=== PATIENT | male | born 1955 | race Caucasian/White ===

== ENCOUNTER 2016-08-24 22:56 | Emergency (ER) | payer SELFPAY ==
[~2016-08-24] VITALS: Ht 175.3 cm; Wt 117.9 kg
[2016-08-25] MEDS ORDERED: Morphine Sulfate 2mg/ml Inj IVP PRN
[2016-08-25] MEDS ORDERED: Enalaprilat 2.5mg/2ml Inj IV PRN
[2016-08-25] MEDS ORDERED: Diltiazem 25mg/5ml IV ONE
[2016-08-25] MEDS ORDERED: Ketorolac 30mg Inj IV PRN
[2016-08-25] MEDS ORDERED: DuoNeb 0.5-3(2.5)mg/3ml neb HHN PRN
[2016-08-25] MEDS ORDERED: Nitroglycerin Subl 0.4mg tab (Bottle Of 25) SL PRN
[2016-08-25] MEDS ORDERED: Miralax 17gm pkt ORAL PRN
[2016-08-25 00:11] LABS: MEAN CORPUSCULAR HEMOGLOBIN 41.9 PG (27.0-31.0); MEAN CORPUSCULAR HGB CONC 33.3 G/DL (32.0-36.0); MEAN CORPUSCULAR VOLUME 126 FL (80-99); MEAN PLATELET VOLUME 8.5 FL (6.5-10.1); PLATELET COUNT 160 K/UL (150-450); RED BLOOD COUNT 2.55 M/UL (4.70-6.10); WHITE BLOOD COUNT 8.8 K/UL (4.8-10.8)
[2016-08-25 00:13] LABS: APPEARANCE,URINE CLEAR; KETONES,URINE 1+ (NEGATIVE); LEUKOCYTE ESTERASE ,URINE NEGATIVE (NEGATIVE); NITRITE,URINE NEGATIVE (NEGATIVE); PH,URINE 5 (4.5-8.0); PROTEIN,URINE NEGATIVE (NEGATIVE); UROBILINOGEN,URINE 1 MG/DL (0.0-1.0)
[2016-08-25 00:23] LABS: INR 1.3 (0.9-1.1)
[2016-08-25] MEDS ORDERED: PREDNISONE20 MG ORAL (00:25)
[2016-08-25] MEDS ORDERED: CARDIZEM CD180 MG ORAL (00:25)
[2016-08-25] MEDS ORDERED: METOPROLOL TART25 MG ORAL (00:25)
[2016-08-25 00:28] LABS: TROPONIN I < 0.30 ng/mL (<=0.30)
[2016-08-25 00:31] LABS: ALANINE AMINOTRANSFERASE 276 U/L (3-41); ANION GAP 17 (5-15); ASPARTATE AMINO TRANSFERASE 96 U/L (5-40); CALCIUM 8.5 mg/dL (8.6-10.2); CARBON DIOXIDE 23 mEQ/L (20-30); CHLORIDE 96 mEQ/L (98-107); CREATININE 0.7 mg/dL (0.7-1.2); GLOMERULAR FILTRATION RATE > 60 mL/min (>60); HEMOLYSIS 9; POTASSIUM 4.8 mEQ/L (3.4-4.9); SODIUM 136 mEQ/L (135-145); TOTAL PROTEIN 5.5 g/dL (6.6-8.7)
[2016-08-25 00:42] LABS: CKMB 4.2 ng/mL (< 6.7)
[2016-08-25 00:52] LABS: BILIRUBIN,DIRECT 0.5 mg/dL (0.1-0.3)
--- NOTE | 2016-08-25 01:37 | Emergency Room Report ---
History of Present Illness General Chief Complaint: Dyspnea/Respdistress Source: Patient, EMS Present Illness HPI This is a 61-year-old male with a history of A. fib, DVT/PE. He was on Elaquis but have complication of low hemoglobin. For this he is taking prednisone. He is supposed to be on Coumadin but hasn't take it for a few days. He presents with chief complaint of feeling weak while he was walking and nearby business. Said that he felt like he has no energy. Denies any fever chills denies any nausea vomiting. No chest pain. Allergies: Coded Allergies: ERYTHROMYCIN BASE (Verified Allergy, Unknown, 08/24/16) Patient History Past Medical History: see triage record, old chart reviewed Past Surgical History: other Pertinent Family History: none Social History: Denies: smoking Immunizations: other Reviewed Nursing Documentation: PMH: Agreed, PSxH: Agreed Nursing Documentation-PMH Hx Cardiac Problems: Yes - A FIB,ANEMIA,PE Hx Diabetes: Yes Review of Systems Constitutional: Reports: malaise, weakness Eye: Denies: blurred vision, eye pain ENT: Denies: ear pain, nose congestion, throat swelling Respiratory: Denies: cough, shortness of breath Cardiovascular: Denies: chest pain, palpitations Gastrointestinal: Denies: abdominal pain, diarrhea, nausea, vomiting Musculoskeletal: Denies: back pain, joint pain Skin: Denies: rash Neurological: Denies: headache, numbness Endocrine: Denies: increased thirst, increased urine Hematologic/Lymphatic: Denies: easy bruising All Other Systems: negative except mentioned in HPI Physical Exam Vital Signs Date Time Temp Pulse Resp B/P Pulse Ox O2 Delivery O2 Flow Rate FiO2 08/24/16 23:03 98.1 112 16 101/69 93 Room Air vitals with tachycardia and hypoxia Sp02 EP Interpretation: abnormal General Appearance: mild distress, obese Head: normocephalic, atraumatic Eyes: bilateral eye EOMI, bilateral eye PERRL ENT: hearing grossly normal, normal pharynx Neck: full range of motion, supple, no meningismus Respiratory: chest non-tender, normal breath sounds, rales - In basis Cardiovascular #1: no murmur, tachycardia, irregularly irregular Gastrointestinal: normal bowel sounds, non tender, no mass, no organomegaly, no bruit, non-distended Musculoskeletal: back normal, normal range of motion, swelling - one plus edema Neurologic: alert, oriented x3 Psychiatric: mood/affect normal Skin: warm/dry Procedures Critical Care Time Critical Care Time Critical care is mandated in this patient who presented with weakness and in rapid A. fib. Patient require my urgent intervention to attenuate the risks of metabolic collapse which may lead to cardiovascular collapse and . Critical care time is 35 minutes excluding any reportable procedure. Critical care time included evaluation, multiple reevaluation, looking at old charts, interpreting laboratory and diagnostic data, discussing case with patient and family and consultants, and charting. Medical Decision Making Diagnostic Impression: Primary Impression: Rapid atrial fibrillation Additional Impressions: CHF exacerbation Qualified Codes: I50.9 - Heart failure, unspecified Anemia Qualified Codes: D64.9 - Anemia, unspecified Hyperglycemia due to type 2 diabetes mellitus Qualified Codes: E11.65 - Type 2 diabetes mellitus with hyperglycemia; Z79.4 - custodial (current) use of insulin ER Course Patient presents with weakness and has rapid A. fib. Also CHF. He improved greatly 1 rate was controlled. He said he felt better now. He did not want to be admitted here because all of his admission has been in [place]. His came here and said that they would leave AGAINST MEDICAL ADVICE. She will drive him to [place] for admission. He is competent to make that decision. I print out laboratory data for the patient. Laboratory Tests Test 08/24/16 23:50 White Blood Count 8.8 K/UL (4.8-10.8) Red Blood Count 2.55 M/UL (4.70-6.10) L Hemoglobin 10.7 G/DL (14.2-18.0) L Hematocrit 32.0 % (42.0-52.0) L Mean Corpuscular Volume 126 FL (80-99) H Mean Corpuscular Hemoglobin 41.9 PG (27.0-31.0) H Mean Corpuscular Hemoglobin Concent 33.3 G/DL (32.0-36.0) Red Cell Distribution Width 18.0 % (11.6-14.8) H Platelet Count 160 K/UL (150-450) Mean Platelet Volume 8.5 FL (6.5-10.1) Neutrophils (%) (Auto) % (45.0-75.0) Lymphocytes (%) (Auto) % (20.0-45.0) Monocytes (%) (Auto) % (1.0-10.0) Eosinophils (%) (Auto) % (0.0-3.0) Basophils (%) (Auto) % (0.0-2.0) Prothrombin Time 14.0 SEC (9.30-11.50) H Prothromb Time International Ratio 1.3 (0.9-1.1) H Activated Partial Thromboplast Time 26 SEC (23-33) Urine Color Yellow Urine Appearance Clear Urine pH 5 (4.5-8.0) Urine Specific [place]lar 1.020 (1.005-1.035) Urine Protein Negative (NEGATIVE) Urine Glucose (UA) 4+ (NEGATIVE) H Urine Ketones 1+ (NEGATIVE) H Urine Occult Blood Negative (NEGATIVE) Urine Nitrite Negative (NEGATIVE) Urine Bilirubin Negative (NEGATIVE) Urine Urobilinogen 1 MG/DL (0.0-1.0) H Urine Leukocyte Esterase Negative (NEGATIVE) Sodium Level 136 mEQ/L (135-145) Potassium Level 4.8 mEQ/L (3.4-4.9) Chloride Level 96 mEQ/L (98-107) L Carbon Dioxide Level 23 mEQ/L (20-30) Anion Gap 17 (5-15) H Blood Urea Nitrogen 26 mg/dL (7-23) H Creatinine 0.7 mg/dL (0.7-1.2) Estimat Glomerular Filtration Rate > 60 mL/min (>60) Glucose Level 397 mg/dL (74-106) H Calcium Level 8.5 mg/dL (8.6-10.2) L Total Bilirubin 1.3 mg/dL (0.0-1.2) H Direct Bilirubin 0.5 mg/dL (0.1-0.3) H Aspartate Amino Transf (AST/SGOT) 96 U/L (5-40) H Alanine Aminotransferase (ALT/SGPT) 276 U/L (3-41) H Alkaline Phosphatase 177 U/L (40-129) H Total Creatine Kinase 35 U/L (38-174) L Creatine Kinase MB 4.2 ng/mL (< 6.7) Creatine Kinase MB Relative Index 12.0 Troponin I < 0.30 ng/mL (<=0.30) Pro-B-Type Natriuretic Peptide 2127 pg/mL (0-125) H Total Protein 5.5 g/dL (6.6-8.7) L Albumin 2.8 g/dL (3.5-5.2) L Globulin 2.7 g/dL Albumin/Globulin Ratio 1.0 (1.0-2.7) Lab Results Impression labs with elevated glucose and BNP EKG Diagnostic Results Rate: tachycardiac Rhythm: other - afib ST Segments: other - NSST changes Rhythm Strip Diag. Results Rhythm Strip Time: 01:35 EP Interpretation: yes Rate: 92 Rhythm: no PVC's, no ectopy, other Chest X-Ray Diagnostic Results Chest X-Ray Ordered: Yes # of Views/Limited/Complete: 1 View Interpretation: no consolidation, no effusion, other - CM with vasc congestion Indication: Shortness of Breath Impression: No acute disease Date Electronically Signed: Aug 25, 2016 Time Electronically Signed: 01:36 Interpreting ER Physician: Binh Skelton MD Last Vital Signs Date Time Temp Pulse Resp B/P Pulse Ox O2 Delivery O2 Flow Rate FiO2 08/25/16 00:04 108 104/72 08/24/16 23:03 98.1 16 93 Room Air Status: improved Disposition: AGAINST MEDICAL ADVICE Condition: Stable Referrals: NON PHYSICIAN (PCP) Additional Instructions: You are leaving against medical advice. You may have a life threatening condition. Return if you change your mind. BINH SKELTON M.D. Aug 25, 2016 01:37
[2016-08-25 01:40] VITALS: BP 104/72
[2016-08-25] MEDS ORDERED: Diltiazem 25mg/5ml IV PRN (07:17)
[2016-08-25] MEDS ORDERED: Metoprolol 5mg/5ml Inj IVP PRN (07:18)
[2016-08-25] MEDS ORDERED: Digoxin 0.5mg/2ml Inj IVP SCH (09:00)
--- NOTE | 2016-08-25 13:47 | Diagnostic Imaging Report ---
Indication: Shortness of breath Technique: One view of the chest Comparison: none Findings: Body habitus limits evaluation. 2 cm opacity is seen in the left midlung. Linear atelectasis or scarring is seen in the left mid to lower lung. The lungs and pleural spaces are otherwise clear. The heart is enlarged. Upper mediastinum is prominent Impression: 2 cm left midlung opacity. Neoplasm not excluded. Recommend further evaluation with thoracic CT. This finding was discussed by phone with Dr. Fischer in the emergency room at the time of interpretation Cardiomegaly
== END 2016-08-25 01:40 | disposition left against medical advice (07) ==
LOC: EDBD 22:56 → EMR 23:22 → EDBEDREQ 08-25 01:23 → EMR 08-25 01:40 → CANBEDREQ 08-25 02:05
DX: I48.91 Unspecified atrial fibrillation (principal); I50.9 Heart failure, unspecified; Z79.01 Long term (current) use of anticoagulants; D64.9 Anemia, unspecified; E11.65 Type 2 diabetes mellitus with hyperglycemia; Z86.711 Personal history of pulmonary embolism
CPT/HCPCS: 36415; 71010; 80053; 81003; 82248; 82550; 82553; 83880; 84484; 85025; 85610; 85730; 96374